=== PATIENT | female | born 2000 | race Caucasian/White ===

== ENCOUNTER 2020-01-11 13:54 | Emergency (ER) | payer BC, SELFPAY ==
[2020-01-11 14:10] VITALS: BP 124/78; PULSE 79; RESP 20; TEMP 36.7; O2SAT 98
--- NOTE | 2020-01-11 14:24 | ED.WOUNDLAC ---
HPI - Wound/Laceration General Chief Complaint: Wound/Laceration Stated Complaint: L ring finger lac Time Seen by Provider: 01/11/20 14:25 Source: patient and RN notes reviewed Mode of arrival: ambulatory Limitations: no limitations History of Present Illness Onset (ago): minute(s) (10) Extremity Location: Left: hand (Ring finger) Place: home Patient tetanus UTD: Yes Context: accidental Associated symptoms: none Related Data Home Medications Medication Instructions Recorded Confirmed albuterol sulfate 2.5 mg INHALATION DIRECTED 01/11/20 01/11/20 norethindrone-e.estradiol-iron 1 tablet PO DAILY 01/11/20 01/11/20 [Nakita 24 Fe] Review of Systems Review of Systems: All systems reviewed & are unremarkable except as noted in HPI and below PMFSH Past Medical History Medical History (Updated 01/11/20 @ 14:36 by Ray Mitchell MD) Asthma Surgical History Surgical History (Updated 01/11/20 @ 14:32 by Ray Mitchell MD) No history of previous surgery Social History Social History (Updated 01/11/20 @ 14:32 by Ray Mitchell MD) Smoking status: Never smoker Alcohol intake: current Alcohol use details: occasional Substance use type: marijuana Other substance usage details: occasional Exam Const: General: healthy appearing and no acute distress Nutritional Appearance: well nourished Orientation/consciousness: patient oriented x3 Other: female nurse in room during examination HENMT: Head: normal to inspection Ears: external ears normal General nose exam: Normal external nose present Mouth: Yes lip normal and Yes moist mucous membranes Eyes: Conjunctivae: conjunctivae normal Pupils: Equal, round and reactive pupils present EOM: EOMs intact bilaterally Neck: Neck: normal visual inspection Resp: Effort & Inspection: normal respiratory effort Auscultation: clear to auscultation bilaterally Cardio: Rate: regular rate Rhythm: regular rhythm GI: Auscultation: normal bowel sounds Back/Spine/Pelvis: Cervical Spine: cervical ROM normal Thoracic/Lumbar Spine: thoraco-lumbar ROM normal Skin: General skin exam: normal color Wounds: wounds noted ( horizontal over fingernail) laceration left dorsal 4th finger Neuro: General: patient oriented x3 and moves all extremities Extrem: General: normal to inspection Psych: Appearance: grossly normal and well kempt Mental Status: mental status grossly normal Affect: normal affect Attitude: cooperative Thought content: Yes Normal thought content present Course Vital Signs Vital signs: Vital Signs Temperature 36.7 C 01/11/20 14:10 Pulse Rate 79 01/11/20 14:10 Respiratory Rate 20 01/11/20 14:10 Blood Pressure 124/78 01/11/20 14:10 Pulse Oximetry 98 01/11/20 14:10 Temperature 36.7 C 01/11/20 14:10 Pulse Rate 79 01/11/20 14:10 Respiratory Rate 20 01/11/20 14:10 Blood Pressure 124/78 01/11/20 14:10 Pulse Oximetry 98 01/11/20 14:10 Procedures Laceration Laceration 1: Date: 01/11/20 Time: 14:28 Site: hand ( 4th fingernail) Side (If applicable): left Size (cm): 1 Description: linear Depth: simple, single layer Pre-repair: wound explored ====== Skin Level ====== Skin layer closed with: dermabond ====== Subcutaneous Layer ====== ====== Muscle Layer ====== ====== Tendon Layer ====== Discharge Plan Discharge Clinical Impression: Laceration Patient Disposition: Home, Self-Care Condition: Stable Instructions: Skin Adhesive Care (ED) Additional Instructions: use Tylenol and or Motrin as needed for pain. Follow Dermabond instructions. Prescriptions: No Action albuterol sulfate 2.5 mg /3 mL (0.083 %) solution for nebulization 2.5 mg inhalation DIRECTED RF: 0 norethindrone-e.estradiol-iron [Nakita 24 Fe] 1 mg-20 mcg (24)/75 mg (4) tablet 1 tablet PO DAILY RF: 0 Follow-up/Referrals:
== END 2020-01-11 14:44 | disposition home or self-care (01) ==
PROVIDERS: Emergency Provider Emergency Medicine; PCP Family Medicine
DX: S61.215A Laceration without foreign body of left ring finger without damage to nail, initial encounter (principal)
CPT/HCPCS: 12001; 99282

== ENCOUNTER 2020-05-28 10:29 | Outpatient (CLI) | payer BC, SELFPAY ==
--- NOTE | ~2020-05-28 | XR_ITS ---
EXAMINATION: XR toe 4th LT min 2V INDICATION: Left fourth toe pain, initial encounter TECHNIQUE: Three views of the fourth toe are obtained. COMPARISON: None available FINDINGS: There is soft tissue swelling of the fourth toe. There is an acute, traumatic, closed, obli que fracture at the plantar base of the fourth distal phalanx which extends to the distal interphalan geal joint. The fracture involves less than 50% of the articular surface. No additional acute osseous abnormality is identified. IMPRESSION: 1. Fracture at the plantar base of the fourth distal phalanx which extends to the distal interphalang eal joint. Reviewed, dictated and finalized at location A. ESTATE REPRESENTATIVE IMPRESSION: 1. Fracture at the plantar base of the fourth distal phalanx which extends to t he distal interphalangeal joint.
== END 2020-05-28 10:30 | disposition home or self-care (01) ==
PROVIDERS: PCP Family Medicine; Visit Provider Family Medicine
DX: S99.922A Unspecified injury of left foot, initial encounter (principal)
CPT/HCPCS: 73660

== ENCOUNTER 2020-10-26 15:55 | Outpatient (CLI) | payer BC, SELFPAY ==
--- NOTE | ~2020-10-26 | XR_ITS ---
XR thoracic spine 3V DATE: 10/26/2020 16:15 INDICATION: Mid thoracic back pain for one day TECHNIQUE: AP, lateral, swimmer views COMPARISON: None FINDINGS: No fracture or dislocation or bone destruction. The thoracic pedicles are intact. No parasp inal soft tissue thickening. IMPRESSION: No significant abnormality Reviewed, dictated and finalized at location B. IMPRESSION: No significant abnormality
== END 2020-10-26 15:56 | disposition home or self-care (01) ==
LOC: CHSIMG 15:57
PROVIDERS: PCP Family Medicine; Visit Provider Nurse Practitioner Psychiatric/Mental Health
DX: M54.6 Pain in thoracic spine (principal)
CPT/HCPCS: 72072

== ENCOUNTER 2021-12-04 07:06 | Outpatient (CLI) | payer BC, SELFPAY ==
--- NOTE | ~2021-12-04 | MR_ITS ---
EXAMINATION: MR thoracic spine wo con DATE: 12/04/2021 07:54 INDICATION: Thoracic back pain. TECHNIQUE: Magnetic resonance imaging (MRI) of the thoracic spine was performed without intravenous c ontrast. Sagittal localizer T1-weighted FSE of the cervical spine was obtained. Thoracic spine sequen vandana included sagittal T2-weighted FSE, sagittal T1-weighted FSE, sagittal T2-weighted FS FSE, and axi al T2-weighted FSE. COMPARISON: Thoracic spine radiographs 10/26/2020 FINDINGS: There is 3 degrees levocurvature of thoracic spine. Vertebral body heights and intervertebr al disc heights are normal. The discs do not extend beyond the endplate margins. There is mild facet joint osteoarthritis at a few levels. No neural foraminal stenosis or central canal stenosis. The spi nal cord signal intensity is normal. IMPRESSION: 1. Multilevel mild facet joint osteoarthritis. Reviewed, dictated and finalized at location A.
== END 2021-12-04 07:07 | disposition home or self-care (01) ==
LOC: CHSIMG 07:07
PROVIDERS: PCP Family Medicine; Visit Provider Registered Nurse
DX: M54.6 Pain in thoracic spine (principal)
CPT/HCPCS: 72146

== ENCOUNTER 2021-12-21 07:41 | Outpatient (RCR) | payer BC, SELFPAY ==
--- NOTE | 2021-12-21 07:59 | PTOPEVAL1 ---
Evaluation Information Assessment Status Evaluation Diagnosis thoracic back pain Onset 11/26/21 Subjective Information patient reports she has had a few bout sof increased back pain. she reports this happens during times of increased stress. she reports usually it is mid to upper thoracic pain, but sometimes will reach her lumbar spine. she reports it will flucutate from side to side. she reports she has had no injuries. she reports she does not notice any change in activities or movement causing her pain. she reports when she has the pain it will be so bad she needs help getting dressed. she reports she had xrays prior which were negative. however, she reports she has had an MRI now and reports she has OA. she reports no NTB in the arms or hands. patient reports laying flat on her back will help reduce pain/symptoms. Reported Pain Level Pain Score 5: Self Report Assessment PT Clinical Summary ms. grady is a 21 yo woman who presents to skilled PT services for evaluation and treatment of thoracic back pain. she presents this date with signs and symptoms of thoracic weakness/ instability and decreased postural control. she would do well to attend and participate in skilled PT services to improve her postural control and stability to return to prior level functional activity performance and quality of life. Plan of Care Interventions Electrical Stimulation,Manual Therapy,Neuro Re- education,Patient/Caregiver Educati,Therapeutic Activities,Therapeutic Exercise PT Services Indicated Yes Treatment Frequency and 2x weekly for 8 visits Duration These treatments will address the objective and functional deficits as defined above. The patient will be advanced safely and appropriately in order for the patient to progress towards his/her prior level of function. Additional exercises will be introduced and as well as a comprehensive home exercise program upon discharge, if needed, ?to ensure carryover of functional gains achieved in the clinic. This treatment plan has been reviewed and agreement upon by the patient.
== END 2022-01-17 13:42 | disposition home or self-care (01) ==
LOC: CHSPT 07:41
PROVIDERS: Visit Provider Registered Nurse
DX: M54.6 Pain in thoracic spine (principal)
CPT/HCPCS: 97014; 97110; 97140; 97161; G0283

== ENCOUNTER 2022-03-22 11:49 | Outpatient (CLI) | payer BC, SELFPAY ==
--- NOTE | ~2022-03-22 | XR_ITS ---
XR chest 2V DATE: 03/22/2022 12:05 INDICATION: Cough for one month. History of asthma. TECHNIQUE: 2 views COMPARISON: 01/30/2019 2 view chest FINDINGS: Normal heart size. No hilar or mediastinal enlargement. No pulmonary infiltrate or consolid ation, pleural effusion or pulmonary vascular congestion or pneumothorax is detected. Included skelet al structures appear normal. IMPRESSION: No active cardiopulmonary disease Reviewed, dictated and finalized at location B. LANCE PROGRAMMER/APP DEVELOPER
== END 2022-03-22 11:50 | disposition home or self-care (01) ==
LOC: CHSIMG 11:53
PROVIDERS: PCP Family Medicine; Visit Provider Family Medicine
DX: R05.9 Cough, unspecified (principal)
CPT/HCPCS: 71046

== ENCOUNTER 2022-04-07 10:20 | Outpatient (CLI) | payer BC, SELFPAY ==
--- NOTE | ~2022-04-07 | XR_ITS ---
Clinical Indication: Cough PA and lateral views of the chest: Comparison: 03/22/2022 Findings: The lungs are clear, without evidence of focal consolidation or pleural effusion. Cardiome diastinal silhouette is within normal limits. Bones and soft tissues are unremarkable. Impression: Normal chest. Reviewed, dictated and finalized at location . RTISING PRODUCTION MANAGER Impression: Normal chest.
== END 2022-04-07 10:21 | disposition home or self-care (01) ==
LOC: CHSIMG 10:25
PROVIDERS: PCP Family Medicine; Visit Provider Family Medicine
DX: R05.9 Cough, unspecified (principal)
CPT/HCPCS: 71046

== ENCOUNTER 2023-09-16 16:13 | Emergency (ER) | payer SELFPAY ==
--- NOTE | ~2023-09-16 | XR_ITS ---
EXAMINATION: XR chest 1V portable DATE: 09/16/2023 17:24 INDICATION: Shortness of breath. Cough. Chest pain. TECHNIQUE: A single frontal view of the chest was obtained. COMPARISON: Chest 2 views 04/07/22 FINDINGS: There is no pneumonia, pleural effusion, or pneumothorax. The heart size is normal. IMPRESSION: 1. No acute cardiopulmonary disease. Reviewed, dictated and finalized at location E.
[2023-09-16 16:13] VITALS: BP 127/82; PULSE 112; RESP 20; TEMP 36.1; O2SAT 94
--- NOTE | 2023-09-16 16:22 | ED.SOB ---
HPI - SOB/Dyspnea General Chief Complaint: Upper Respiratory Infection Stated Complaint: asthma; short of breath Time Seen by Provider: 09/16/23 16:22 Source: patient Mode of arrival: ambulatory Limitations: no limitations History of Present Illness HPI Narrative: 23-year-old female with a history of asthma on Breo Ellipta, anxiety/depression, fibromyalgia presents to the ER with a 3 day history of -- cough productive of mucoid sputum -- worsening shortness of breath -- generalized wheezing she went to an urgent care where she received prednisone 40 mg and her nebulizer solution albuterol. Patient continues to have increasing shortness of breath and wheezing. No fever or chills patient smokes marijuana MD elicited complaint: shortness of breath, cough and asthma attack Pertinent past history: asthma Onset (ago): day(s) ( 3 days) Context: anxiety Timing: constant Severity: severe Exacerbating factors: nothing Relieving factors: nothing Known history of: asthma Associated symptoms: cough and sputum production Treatment prior to arrival: bronchodilator Related Data Home oxygen amount: none Home Medications Medication Instructions Recorded Confirmed albuterol sulfate 2.5 mg/3 mL 2.5 mg inhalation DIRECTED 01/11/20 09/16/23 (0.083 %) solution for nebulization norethindrone 1 mg-ethinyl 1 tablet PO DAILY 01/11/20 09/16/23 estradiol 20 mcg (24)-iron 75 mg (4) tablet (Nakita 24 Fe) albuterol sulfate 90 mcg/actuation 2 puff inhalation QID 09/16/23 09/16/23 aerosol inhaler amitriptyline 25 mg tablet 25 mg PO DAILY 09/16/23 09/16/23 bupropion HCl 100 mg tablet 100 mg PO DAILY 09/16/23 09/16/23 lamotrigine 100 mg tablet 100 mg PO DAILY 09/16/23 09/16/23 sertraline 100 mg tablet 100 mg PO DAILY 09/16/23 09/16/23 Allergies Allergy/AdvReac Type Severity Reaction Status Date / Time No Known Allergies Allergy Verified 09/16/23 16:24 Review of Systems Review of Systems: All systems reviewed & are unremarkable except as noted in HPI and below Constitutional: Constitutional: Reports as per HPI and Reports no additional constitutional complaints Eyes: Eyes: Reports as per HPI and Reports no additional eye complaints ENT: Reports system reviewed and no additional complaints, except as documented, Reports as per HPI and Reports nasal congestion Cardiovascular: Cardiovascular: Reports as per HPI and Reports no additional cardiovascular complaints Respiratory: Respiratory: Reports as per HPI, Reports no additional respiratory complaints, Reports cough, Reports dyspnea and Reports wheezing Gastrointestinal: Gastrointestinal: Reports as per HPI and Reports no additional gastrointestinal complaints Genitourinary: Genitourinary: Reports no additional female genitourinary complaints Musculoskeletal: Musculoskeletal: Reports no additional musculoskeletal complaints Integumentary/Breasts: Skin/Breast: Reports system reviewed and no additional complaints, except as docu and Reports as per HPI Neurologic: Reports system reviewed and no additional complaints, except as documented and Reports as per HPI Psychiatric: Psychiatric: Reports no additional psychiatric complaints, Reports as per HPI and Reports anxiety Endocrine: Endocrine: Reports no additional endocrine complaints and Reports as per HPI Hematologic/Lymphatic: Hematologic/Lymphatic: Reports no additional hematologic/lymphatic complaints and Reports as per HPI Allergic/Immunologic: Allergic/Immunologic: Reports no additional allergic/immunologic complaints and Reports as per HPI PMFSH Past Medical History Medical History Asthma Surgical History Surgical History No history of previous surgery Social History Social History Smoking status: Never smoker Alcohol intake: current [employer]
[2023-09-16 16:25] VITALS: O2SAT 94
[2023-09-16 16:27] VITALS: BP 127/82; PULSE 112; RESP 20; TEMP 36.1; O2SAT 94
[2023-09-16 17:00] LABS: Pregnancy On Board Control Positive; Urine Pregnancy Test Negative
[2023-09-16 17:36] VITALS: BP 115/82; PULSE 101; RESP 16; TEMP 36.4; O2SAT 95
[2023-09-16 17:37] LABS: SARS-CoV-2 RNA PCR Negative (Negative)
[2023-09-16 17:41] LABS: Influenza A QL RT-PCR Negative (Negative); Influenza B QL RT-PCR Negative (Negative); RSV RNA, RT-PCR Negative (Negative)
[2023-09-16] MEDS: methylPREDNISolone SOD SUCC 125 MG VIAL 40 MG IM (17:52)
== END 2023-09-16 18:06 | disposition home or self-care (01) ==
PROVIDERS: Emergency Provider Internal Medicine Critical Care Medicine; PCP Family Medicine
DX: J45.41 Moderate persistent asthma with (acute) exacerbation (principal); F41.9 Anxiety disorder, unspecified; F32.A Depression, unspecified; M79.7 Fibromyalgia; Z79.51 Long term (current) use of inhaled steroids; F12.90 Cannabis use, unspecified, uncomplicated; Z20.822 Contact with and (suspected) exposure to COVID-19
CPT/HCPCS: 71045; 81025; 87637; 96372; 99283; J2919

== ENCOUNTER 2024-03-01 04:53 | Day surgery (SDC) | payer BC, SELFPAY ==
[2024-02-23 11:17] VITALS: BMI 30.9
--- NOTE | 2024-02-23 11:18 | PC.NURSE ---
Report to the Outpatient Waiting Room, entrance under the green pavilion located off [facility], at time _0600_ on date _[id number]_. Planned Procedure Time: _0730_.? Time changes happen often and if your time is changed the preop area will call you the afternoon before. - You and your visitor will be asked to self-screen and do not enter if you have any COVID symptoms. Please call surgeon if you need to reschedule. - A mask is optional within the hospital at this time. Patients may have clear liquids (water, carbonated beverages, clear teas, apple juice) until 3 hours prior to surgery with a maximum of 20 ounces. - No food from midnight until time of surgery and no smoking Take only the following medications with a SIP of water on the morning of surgery: __Bupropion, Guanfacine, Rexulti, BC pill and if needed Albuterol____ DO NOT STOP ANY OF YOUR OTHER PRESCRIPTION MEDICATIONS PRIOR TO SURGERY EXCEPT THE FOLLOWING Medications to discontinue per physician ___None____ Date to take last dose Please no make-up, nail indian, hairspray, perfume, deodorant, or body powder the day of surgery.? No jewelry (including any body piercings) or valuables the day of surgery, leave them at home.? Please take a shower or bath the night before, or the morning of, surgery with an antibacterial soap.? Wear comfortable, loose fitting clothing.? - Jewelry must be removed prior to entering the operating room.? Rings and piercings that are not removed may be cut off. - The hospital will not accept responsibility for valuables.? - Please leave all valuables, including medications, at home the day of surgery. If you are going home after surgery, a licensed mechanic welder truck driver must drive you home.? - NO public transportation without another adult if you receive anesthesia. - We recommend that an adult stay with you for 24 hours following discharge. - We also recommend that you do not drive, make important decision, drink alcoholic beverages, or take any drugs that were not prescribed by your health care provider for at least 24 hours after your discharge time. Follow any additional instructions given to you from your surgeon. Telephone instructions given to __Rea__and asked if any additional questions and then verbalized understanding. Patient advised to call surgeon office or pre surgery nurse liaison [phone] if any additional questions.
--- NOTE | 2024-02-28 11:27 | P.HP_ITS ---
H&P: HPI History of Present Illness Date/Time: 02/28/24 11:27 Chief Complaint: Sterilization Narrative: 24-year-old 0 admitted for laparoscopic bilateral tubal ligation. She has never had a child and a cyst that she wants permanent irreversible tubal ligation. Reviewed alternatives including but not exclusive pills patches injections long-acting contraceptive devices etc. she understands this to be i rreversible risks and benefits of the procedure were also reviewed in full. She had all questions answered asked to proceed PMFSH Past Medical History Medical History Asthma Surgical History Surgical History No history of previous surgery Social History Social History Smoking status: Never smoker Alcohol intake: current Drinks per week: 2 Alcohol use details: occasional Substance use type: marijuana Other substance usage details: Daily Living arrangements: with family Spiritual care concerns: No Meds Home Medications and Allergies Home Medications Medication Instructions Recorded Confirmed Type albuterol sulfate 2.5 mg/3 mL 2.5 mg inhalation DIRECTED 01/11/20 02/23/24 History (0.083 %) solution for nebulization norethindrone 1 mg-ethinyl 1 tablet PO DAILY 01/11/20 02/23/24 History estradiol 20 mcg (24)-iron 75 mg (4) tablet (Nakita 24 Fe) albuterol sulfate 90 mcg/actuation 2 puff inhalation QID 09/16/23 02/23/24 History aerosol inhaler amitriptyline 25 mg tablet 25 mg PO DAILY 09/16/23 02/23/24 History brexpiprazole 2 mg tablet (Rexulti) 2 mg PO DAILY 02/23/24 02/23/24 History bupropion HCl 300 mg 24 hr tablet, 300 mg PO DAILY 02/23/24 02/23/24 History extended release guanfacine 1 mg tablet 1 mg PO BID 02/23/24 02/23/24 History Allergies Allergy/AdvReac Type Severity Reaction Status Date / Time No Known Allergies Allergy Verified 02/23/24 11:09 Exam Const: General: cooperative, healthy appearing and comfortable Nutritional Appearance: average body habitus Orientation/consciousness: oriented to person, oriented to place and oriented to time HENMT: Head: normal to inspection Resp: Effort & Inspection: normal respiratory effort Cardio: Rate: regular rate Rhythm: regular rhythm Heart sounds: S1 normal heart sound present and S2 normal heart sound present GI: Inspection: normal to inspection : External Female Exam: normal external appearance Speculum Exam - Vagina: normal appearance of the vagina Speculum Exam - Cervix: normal appearance of the cervix Bimanual exam- vagina & uterus: uterine size normal Bimanual Exam- Adnexa, other: normal adnexae Assessment and Plan Assessment and plan (1) Sterilization: Code(s): Z30.2 - Encounter for sterilization Status: Acute Assessment and Plan: Proceed with laparoscopic bilateral tubal ligation
[2024-03-01] VITALS (10 sets, daily range): BP systolic 101–150; BP diastolic 70–91; PULSE 94–129; RESP 12–21; TEMP 36.7–37.2; O2SAT 97–100
[2024-03-01] MEDS: KETOROLAC 15 MG/ML VIAL (*BKC) IV PUSH ×2 (06:30→08:36)
[2024-03-01] MEDS: ACETAMINOPHEN 500 MG TABLET 1000 MG PO (06:30)
[2024-03-01] MEDS: LACTATED RINGERS 1,000 ML 30 ML IV CONT ×2 (06:30→07:54)
[2024-03-01] MEDS: SCOPOLAMINE 1 MG PATCH 1 PATCH TRANSDERM (06:40)
--- NOTE | 2024-03-01 06:40 | P.PNAN_ITS ---
Anes - Initial Pre Proc Eval Procedure: Operation Date: 03/01/24 07:30 Proposed Procedures p Laparoscopic Bilateral Tubal Sterilization with Fallopian Rings - Alan Prasad MD Date/Time: 03/01/24 06:40 Surgeon: Alan Prasad MD Pre Op Diagnosis: desires sterilization Patient Data Age: 24 Gender: F Height: 1.63 m Weight: 86 kg Last Vital Signs Temp 37.2 C 03/01/24 06:30 Pulse 94 03/01/24 06:30 Resp 14 03/01/24 06:30 BP 125/75 03/01/24 06:30 Pulse Ox 98 03/01/24 06:30 O2 Del Method Room Air 03/01/24 06:30 Allergies Allergy/AdvReac Type Severity Reaction Status Date / Time No Known Allergies Allergy Verified 02/23/24 11:09 Home Medications Medication Instructions Recorded Confirmed Type albuterol sulfate 2.5 mg/3 mL 2.5 mg inhalation DIRECTED 01/11/20 02/23/24 History (0.083 %) solution for nebulization norethindrone 1 mg-ethinyl 1 tablet PO DAILY 01/11/20 02/23/24 History estradiol 20 mcg (24)-iron 75 mg (4) tablet (Nakita 24 Fe) albuterol sulfate 90 mcg/actuation 2 puff inhalation QID 09/16/23 02/23/24 History aerosol inhaler amitriptyline 25 mg tablet 25 mg PO DAILY 09/16/23 02/23/24 History brexpiprazole 2 mg tablet (Rexulti) 2 mg PO DAILY 02/23/24 02/23/24 History bupropion HCl 300 mg 24 hr tablet, 300 mg PO DAILY 02/23/24 02/23/24 History extended release guanfacine 1 mg tablet 1 mg PO BID 02/23/24 02/23/24 History Patient hx anesthesia problems: none Family hx anesthesia problems: none Results Review: All pre-operative results and documents have been reviewed as part of the pre- operative evaluation. [facility] Past Medical History Medical History (Updated 03/01/24 @ 06:40 by Alan Ceballos MD) Asthma Obesity Surgical History Surgical History No history of previous surgery Social History Social History Smoking status: Never smoker Alcohol intake: current Drinks per week: 2 Alcohol use details: occasional Substance use type: marijuana Other substance usage details: Daily Living arrangements: with family Spiritual care concerns: No Anes - Eval Final PreProcedure Day of Procedure 03/01/24 06:40 Patient weight: obese Heart: regular rate and rhythm Lungs: clear to auscultation Airway: Mallampati scale class II Neurological: alert and oriented Last oral intake: >/= 8 hours ASA classification: III Emergent: no Anesthetic plan: proceed Anesthesia type and monitoring: general ETT and standard monitoring Results Review: All pre-operative results and documents have been reviewed as part of the pre- operative evaluation. Informed Consent: The patient's anesthetic plan and its attendant risks and benefits were discussed with the patient/family/POA. Questions were solicited and answers provided to the satisfaction of the patient/family/POA.
--- NOTE | 2024-03-01 07:07 | WPDHPUPDATE1 ---
History and Physical Update Update Date/Time: 03/01/24 07:07 History and Physical has been reviewed, including an updated exam of the patient. There are NO changes in the patient's condition. Risks, benefits, and alternatives have been discussed and questions answered. Patient agrees to proceed with procedure.
--- NOTE | 2024-03-01 07:48 | W.PM.PROC2 ---
Procedure Note - Detailed Date of Procedure 03/01/24 Pre-op Diagnosis desires sterilization Post-op Diagnosis Same Procedure Performed Laparoscopic bilateral tubal ligation via silastic bands Surgeon Alan Prasad MD Anesthesia General Indications 24 year desires irreversible sterilization Findings normal-appearing uterus ovaries and tubes. Normal-appearing appendix gallbladder and liver edge. Description of Procedure The patient was prepped draped in normal sterile fashion placed in dorsal lithotomy position. Under excellent general endotracheal anesthesia weighted speculum placed in posterior fornix vagina. Anterior lip of cervix grasped with single-tooth tenaculum. Gr's cannula inserted the cervix and attached to the single-tooth. This would be used later for uterine manipulation. The bladder emptied of clear urine. The weighted speculum was removed and the gloves were changed. Supraumbilical incision made the Veress needle passed in the abdomen. Abdomen filled with CO2 gas [id number]. The 8mm trocar advanced under the Optiview with no injury seen. Patient placed in Trendelenburg and a suprapubic incision made. 8Mm trocar advanced under direct visualization assuring no injury. The fallopian tubes appeared within normal limits as did the remainder of the pelvis the right fallopian tube was then grasped. Good knuckle of tube was formed in the midportion with excellent blanching. In similar fashion on the left. The midportion left fallopian tube was grasped a good knuckle of tube formed with the fallopian tube ring. Photo documentation was undertaken. No other abnormalities were seen. The gas was removed from the abdomen. The trocars removed the incisions closed with 4 Monocryl and glue. The instruments removed from the vagina the patient was awakened. She went to recovery in satisfactory condition. All sponge, needle, instrument counts were correct. There were no immediate complications Estimated Blood Loss 5 Drains No Packing No Pathology None sent Complications No immediate complications Condition Stable Disposition PACU
[2024-03-01] MEDS: HYDROmorphone HCL INJ (*CRX) 1 MG/ML SYR 0.25 MG IV PUSH ×8 (08:03→08:38)
--- NOTE | 2024-03-01 08:39 | SUR.PHASEI ---
0830 - Leslie Lopez RETORT SETTER aware of HR 120s. orders received
--- NOTE | 2024-03-01 09:03 | SUR.PHASEI ---
0900 - oozing of blood noted at umbilicus site, area cleaned and glue reapplied by Eduardo OR staff
--- NOTE | 2024-03-01 09:08 | SUR.PHASEI ---
[id number] - Eduardo, OR staff addressing surgical site after speaking to Dr. Antonio Prasad. No glue applied. steristrips applied with 2x2 with tegaderm
[2024-03-01] MEDS: oxyCODONE HCL (*CRX) 5 MG TAB IR PO (09:30)
--- NOTE | 2024-03-01 09:46 | SUR.PHASEII ---
Pt umbilicus site was noted to have a small amount of bloody drainage. Eduardo PINEDA proceeded to place one suture at the site. MD Antonio Prasad aware and will remove suture at follow up appointment. Pt received 3ml of 1% lidocaine prior to suture placement.
[2024-03-04 10:01] LABS: BEDSIDEPREGUCG Negative (Negative)
== END 2024-03-01 10:22 | disposition home or self-care (01) ==
PROVIDERS: PCP Family Medicine; Visit Provider Obstetrics & Gynecology
PROC: (CPT 58671; principal; 2024-03-01 07:30)
DX: Z30.2 Encounter for sterilization (principal); J45.909 Unspecified asthma, uncomplicated; Z79.51 Long term (current) use of inhaled steroids; E66.9 Obesity, unspecified; Z68.32 Body mass index [BMI] 32.0-32.9, adult; F12.90 Cannabis use, unspecified, uncomplicated
CPT/HCPCS: 58671; A4264; A9270; J0330; J1100; J1171; J1885; J2003; J2250; J2405; J2704; J3010; J7120

== ENCOUNTER 2024-03-12 17:00 | Outpatient (CLI) | payer BC, SELFPAY ==
--- NOTE | ~2024-03-12 | XR_ITS ---
EXAMINATION: XR chest 2V Exam Date/Time: 03/12/2024 17:09 ASSOCIATE DOCTOR HISTORY: Cough Comparison: 09/16/2023. RESULT: Lines, tubes, and devices: None. Lungs and pleura: Clear. Cardiomediastinal silhouette: Stable. Other: No acute osseous or upper abdominal finding. IMPRESSION: No acute cardiopulmonary process. Reviewed, dictated and finalized at location K. [facility] DO[facility]
== END 2024-03-12 17:01 | disposition home or self-care (01) ==
LOC: CHSIMG 17:04
PROVIDERS: PCP Registered Nurse; Visit Provider Registered Nurse
DX: R05.9 Cough, unspecified (principal)
CPT/HCPCS: 71046